=== PATIENT | female | born 1980 | race Caucasian/White ===

== ENCOUNTER 2017-11-09 19:03 | Emergency (ER) | payer BC ==
[~2017-11-09] VITALS: Ht 172.7 cm; Wt 74.8 kg
[~2017-11-09 19:03] MED LIST: ACETAMINOPHEN-1 EAC1 PO; CIPRO500 MG PO; ONE-A-DAY WOMENS PO; SAFFRON176.5 MG PO
[2017-11-09] MEDS ORDERED: NUVARING VAGIN1 EACH VG (19:09)
[2017-11-09 19:48] LABS: ABSOLUTE BASOPHILS 0.1 thou/uL (0.0-0.2); ABSOLUTE EOSINOPHILS 0.1 thou/uL (0.0-0.7); ABSOLUTE MONOCYTES 0.6 thou/uL (0.0-1.2); ABSOLUTE NEUTROPHILS 7.2 thou/uL (1.6-8.1); BASOPHILS 1.1 %; EOSINOPHILS 1.2 %; HEMATOCRIT 37.2 % (37.0-47.0); HEMOGLOBIN 12.6 gm/dL (12.0-15.0); LYMPHOCYTES 26.9 %; MCH 30.3 pg (26.0-34.0); MCHC 33.9 g/dL (28.0-37.0); MCV 89.5 fL (80.0-100.0); MONOCYTES 5.3 %; NUCLEATED RBCS 0 /100WBC; PLATELET COUNT* 331 thou/uL (150-400); POLYS 65.5 %; RBC 4.16 mil/uL (4.20-5.00); RDW-CV 13.1 % (10.5-14.5)
[2017-11-09 19:56] LABS: ANION GAP 12 mmol/L (7-16); BUN 7 mg/dL (7-18); CALCIUM 8.8 mg/dL (8.5-10.1); CHLORIDE 107 mmol/L (98-107); CO2 25 mmol/L (21-32); CREATININE 0.8 mg/dL (0.6-1.3); GLUCOSE 116 mg/dL (70-99); POTASSIUM 3.4 mmol/L (3.5-5.1); SODIUM 144 mmol/L (136-145)
[2017-11-09 20:10] LABS: ALBUMIN 3.3 g/dL (3.4-5.0); ALKALINE PHOSPHATASE 88 U/L (46-116); SGOT 14 U/L (15-37); SGPT 15 U/L (30-65); TOTAL BILIRUBIN 0.2 mg/dL (<0.1-1.0); TOTAL PROTEIN 7.5 g/dL (6.4-8.2); TROPONIN-I LEVEL <0.06 ng/mL (<0.06)
[2017-11-09] MEDS ORDERED: MEDROLDOSEPACK PO (22:02)
[2017-11-09] MEDS ORDERED: LIORESAL 10 MG10 MG PO (22:02)
[2017-11-09] MEDS ORDERED: OXYCODON-ACETA1 EAC1 PO (22:02)
[2017-11-09] MEDS ORDERED: IBUPROFEN 400400 M1 PO (22:02)
[2017-11-09 22:40] VITALS: BP 111/84
--- NOTE | 2017-11-10 10:29 | EKG ---
[place] [address] ELECTROCARDIOGRAM REPORT Name: ERAN SMITH V Room: [facility]#: [id number] Admission: 11/09/17 Attend Phys: Discharge: 11/09/17 Date of : 82 Report #: [id number] THIS REPORT FOR: //name// [facility] ED Test Date: 2017-11-09 Test Time: 19:10:56 Pat Name: ERAN SMITH Department: Room: Gender: F Technician Inventory Specialist: PAMELA Finley : 1980 Requested By: Amanda Cedillo Order Number: [id number] MD: Ashvin Renee Measurements Intervals [place] Rate: 78 P: 43 [place]: 145 QRS: 58 QRSD: 60 T: 42 QT: 385 QTc: 439 Interpretive Statements Sinus rhythm Borderline T abnormalities, anterior leads Baseline wander in lead(s) V3,V6 No previous ECG available for comparison Electronically Signed On 11-10-2017 10:29:30 ENGINE BUILDER by Ashvin Renee [email or web address] <ELECTRONICALLY SIGNED> By: Ashvin Renee MD, [facility] 11/10/17 1029 09 09 Ashvin Renee MD, FAC /EPI
== END 2017-11-09 22:40 | disposition home or self-care (01) ==
LOC: M.ERS 19:03
PROVIDERS: Emergency Medicine
DX: F41.9 Anxiety disorder, unspecified (principal); M62.838 Other muscle spasm; M50.20 Other cervical disc displacement, unspecified cervical region; F41.0 Panic disorder [episodic paroxysmal anxiety]; Z90.89 Acquired absence of other organs; Z88.1 Allergy status to other antibiotic agents; Z88.0 Allergy status to penicillin; Z88.2 Allergy status to sulfonamides